=== PATIENT | female | born 2000 | race Caucasian/White ===

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

== ENCOUNTER → 2023-12-23 | Outpatient (CLI) | payer BC ==
--- NOTE | 2023-12-23 08:08 | US ---
EXAMINATION TYPE: US abdomen complete DATE OF EXAM: 12/23/2023 COMPARISON: NONE CLINICAL INDICATION: Female, 23 years old with history of R10.9 UNSPECIFIED ABDOMINAL PAIN; Early Sat iety x 1 year; Postpranidol pain TECHNIQUE: Multiple sonographic images of the abdomen are obtained. FINDINGS: EXAM MEASUREMENTS: Liver Length: 15.3 cm Gallbladder Wall: 0.10 cm CBD: 0.30 cm Spleen: 10.1 cm Right Kidney: 10.0 x 4.4 x 5.0 cm Left Kidney: 9.1 x 5.8 x 4.6 cm GEOPHYSICIST NOTES: Pancreas: wnl Liver: wnl Gallbladder: wnl Evidence for sonographic Foss's sign: No CBD: wnl Spleen: wnl Right Kidney: wnl Left Kidney: wnl Upper IVC: wnl Abd Aorta: wnl The liver is homogenous. The intrahepatic portion of the IVC and proximal abdominal aorta are within normal limits. There is no evidence of cholelithiasis. Common bile duct is unremarkable. The visu alized portions of the pancreas are homogenous. The spleen is unremarkable. Kidneys are symmetric a nd free of hydronephrosis. No renal lesions are seen. IMPRESSION: No discrete abnormality seen.
--- NOTE | 2023-12-23 08:09 | US ---
EXAMINATION TYPE: US pelvic complete DATE OF EXAM: 12/23/2023 COMPARISON: NONE CLINICAL INDICATION: Female, 23 years old with history of R10.9 UNSPECIFIED ABDOMINAL PAIN; Normal me nses; Discontinued pill control about 2 weeks ago TECHNIQUE: . Transabdominal sonographic images of the pelvis were acquired. Transvaginal sonographi c images were not medically necessary. Date of LMP: 12/15/2023 EXAM MEASUREMENTS: Uterus: 6.4 x 3.3 x 5.0 cm Endometrial Stripe: 0.35 cm Right Ovary: 3.9 x 2.5 x 2.2 cm Left Ovary: 3.8 x 3.0 x 1.9 cm 1. Uterus: Anteverted wnl 2. Endometrium: wnl 3. Right Ovary: wnl 4. Left Ovary: wnl 5. Bilateral Adnexa: wnl 6. Posterior cul-de-sac: wnl IMPRESSION: No discrete abnormality seen.
== END | disposition home or self-care (01) ==
LOC: RADUSWWP 07:00
PROVIDERS: ATTEND Pediatrics
DX: R10.9 Unspecified abdominal pain (principal); R68.81 Early satiety
CPT/HCPCS: 76700; 76856